=== PATIENT | female | born 1950 | race Caucasian/White ===

== ENCOUNTER 2018-07-08 21:06 | Inpatient (IN) | payer MEDICARE, OTHER ==
[2018-07-08 21:28] LABS: ADD MAN DIFF? NO
[2018-07-08 21:31] LABS: BASOPHILS % 0.5 % (0.0-2.0); EOSINOPHILS # 0.1 10^3/ul (0.0-0.5); EOSINOPHILS % 1.7 % (0.0-7.0); HEMATOCRIT 35.2 % (37.0-47.0); HEMOGLOBIN 12.2 g/dl (12.0-16.0); LYMPHOCYTES # 3.1 10^3/ul (0.8-2.9); LYMPHOCYTES % 40.7 % (15.0-51.0); MEAN CORPUSCULAR HEMOGLOBIN 30.1 pg (29.0-33.0); MEAN CORPUSCULAR HGB CONC 34.7 g/dl (32.0-37.0); MEAN CORPUSCULAR VOLUME 86.9 fl (82.0-101.0); MEAN PLATELET VOLUME 9.7 fl (7.4-10.4); MONOCYTE # 0.6 10^3/ul (0.3-0.9); MONOCYTES % 7.1 % (0.0-11.0); NEUTROPHIL # 3.8 10^3/ul (1.6-7.5); NEUTROPHILS % 49.6 % (39.0-77.0); PLATELET COUNT 196 10^3/UL (140-415); RED BLOOD COUNT 4.05 10^6/ul (4.20-5.40); RED CELL DISTRIBUTION WIDTH 12.5 % (11.5-14.5)
[2018-07-08 21:31] LABS: WHITE BLOOD COUNT 7.7 10^3/ul (4.8-10.8)
[2018-07-08 21:50] LABS: ANION GAP 12 (5-13); BLOOD UREA NITROGEN 19 mg/dl (7-20); CALCIUM 8.9 mg/dl (8.4-10.2); CARBON DIOXIDE 25 mmol/L (21-31); CHLORIDE 103 mmol/L (97-110); CREATININE 0.65 mg/dl (0.44-1.00); Estimated GFR > 60 mL/min (>60); GLUCOSE 203 mg/dl (70-220); POTASSIUM 3.1 mmol/L (3.5-5.1); SODIUM 140 mmol/L (135-144)
[2018-07-08 22:00] LABS: TROPONIN-I < 0.012 ng/ml (0.000-0.120)
[2018-07-08] MEDS: ONDANSETRON 4 MG INJ IV (22:12)
[2018-07-08] MEDS: morphine 2 MG INJ IV (22:12)
[2018-07-09] MEDS ORDERED: NACL 0.9% 3 ML SYG IV (02:30)
[2018-07-09] MEDS ORDERED: ONDANSETRON 4 MG INJ IV (02:30)
[2018-07-09] MEDS: clonAZEPAM 0.5 MG TAB PO ×3 (02:30→22:00)
[2018-07-09] MEDS ORDERED: ALBUTEROL/IPRATROPIUM (NEB) 3 ML AMP HHN (02:30)
[2018-07-09 03:45] LABS: ADD MAN DIFF? NO
[2018-07-09 04:01] LABS: WHITE BLOOD COUNT 6.8 10^3/ul (4.8-10.8)
[2018-07-09 04:01] LABS: BASOPHILS % 0.4 % (0.0-2.0); EOSINOPHILS # 0.1 10^3/ul (0.0-0.5); EOSINOPHILS % 1.5 % (0.0-7.0); HEMATOCRIT 32.6 % (37.0-47.0); HEMOGLOBIN 11.1 g/dl (12.0-16.0); LYMPHOCYTES # 2.6 10^3/ul (0.8-2.9); LYMPHOCYTES % 38.9 % (15.0-51.0); MEAN CORPUSCULAR HEMOGLOBIN 29.9 pg (29.0-33.0); MEAN CORPUSCULAR VOLUME 87.9 fl (82.0-101.0); MEAN PLATELET VOLUME 9.7 fl (7.4-10.4); MONOCYTE # 0.4 10^3/ul (0.3-0.9); MONOCYTES % 6.2 % (0.0-11.0); NEUTROPHIL # 3.6 10^3/ul (1.6-7.5); NEUTROPHILS % 52.3 % (39.0-77.0); PLATELET COUNT 174 10^3/UL (140-415); RED BLOOD COUNT 3.71 10^6/ul (4.20-5.40); RED CELL DISTRIBUTION WIDTH 12.7 % (11.5-14.5)
[2018-07-09 04:02] LABS: HEMOGLOBIN A1C 5.7 % (0-5.9)
[2018-07-09 04:15] LABS: ALANINE AMINOTRANSFERASE 35 IU/L (13-69); ALBUMIN 3.6 g/dl (3.3-4.9); ALKALINE PHOSPHATASE 91 IU/L (42-121); ANION GAP 8 (5-13); ASPARTATE AMINO TRANSFERASE 29 IU/L (15-46); BILIRUBIN,INDIRECT 0.7 mg/dl (0-1.1); BILIRUBIN,TOTAL 0.7 mg/dl (0.2-1.3); BLOOD UREA NITROGEN 17 mg/dl (7-20); CALCIUM 8.9 mg/dl (8.4-10.2); CARBON DIOXIDE 28 mmol/L (21-31); CHLORIDE 107 mmol/L (97-110); CHOL/HDL RATIO 5.1 RATIO; CHOLESTEROL 222 mg/dl (100-200); CREATINE KINASE 116 IU/L (23-200); CREATININE 0.59 mg/dl (0.44-1.00); Estimated GFR > 60 mL/min (>60); GLUCOSE 101 mg/dl (70-220); HDL CHOLESTEROL 43 mg/dl (35-98); LDL CHOLESTEROL,CALCULATED 159 mg/dl; MAGNESIUM 1.6 mg/dl (1.7-2.5); POTASSIUM 4.3 mmol/L (3.5-5.1); SODIUM 143 mmol/L (135-144); TRIGLYCERIDES 98 mg/dl (0-149)
[2018-07-09 04:25] LABS: CK INDEX 6.1; CK-MB 7.02 ng/ml (0.0-2.4)
[2018-07-09] MEDS ORDERED: HEPARIN 25000 UNITS/250 ML 250 ML IV (05:30)
[2018-07-09 06:00] LABS: ADD MAN DIFF? NO
[2018-07-09 06:08] LABS: WHITE BLOOD COUNT 6.1 10^3/ul (4.8-10.8)
[2018-07-09 06:08] LABS: BASOPHILS % 0.3 % (0.0-2.0); EOSINOPHILS # 0.1 10^3/ul (0.0-0.5); EOSINOPHILS % 1.7 % (0.0-7.0); HEMATOCRIT 32.7 % (37.0-47.0); HEMOGLOBIN 11.2 g/dl (12.0-16.0); LYMPHOCYTES # 2.4 10^3/ul (0.8-2.9); LYMPHOCYTES % 38.9 % (15.0-51.0); MEAN CORPUSCULAR HEMOGLOBIN 29.9 pg (29.0-33.0); MEAN CORPUSCULAR HGB CONC 34.3 g/dl (32.0-37.0); MEAN CORPUSCULAR VOLUME 87.4 fl (82.0-101.0); MEAN PLATELET VOLUME 9.4 fl (7.4-10.4); MONOCYTE # 0.4 10^3/ul (0.3-0.9); MONOCYTES % 6.6 % (0.0-11.0); NEUTROPHIL # 3.2 10^3/ul (1.6-7.5); NEUTROPHILS % 52.2 % (39.0-77.0); PLATELET COUNT 169 10^3/UL (140-415); RED BLOOD COUNT 3.74 10^6/ul (4.20-5.40); RED CELL DISTRIBUTION WIDTH 12.7 % (11.5-14.5)
[2018-07-09 06:32] LABS: INR 1.07; PT RATIO 1.1
[2018-07-09 06:33] LABS: PARTIAL THROMBOPLASTIN TIME 30.2 Sec (23.0-35.0)
[2018-07-09] MEDS: PANTOPRAZOLE (EC) 40 MG TAB PO (06:53)
[2018-07-09] MEDS: HEPARIN 25000 UNITS/D5W 250 ML IV ×3 (07:02→22:46)
[2018-07-09] MEDS: ASPIRIN (EC) 325 MG TAB PO (08:20)
[2018-07-09] MEDS: NIFEdipine (XL) 90 MG TAB PO (08:20)
[2018-07-09] MEDS ORDERED: ENOXAPARIN 40 MG/0.4 ML SYG SC (09:00)
[2018-07-09 10:32] LABS: CREATINE KINASE 138 IU/L (23-200)
[2018-07-09 10:42] LABS: CK INDEX 7.3
[2018-07-09] MEDS: ACETAMINOPHEN 325 MG TAB PO (11:56)
[2018-07-09 13:32] LABS: PARTIAL THROMBOPLASTIN TIME 36.2 Sec (23.0-35.0)
[2018-07-09] MEDS: HEPARIN 1000 UNITS/ML 10 ML INJ IV (15:09)
[2018-07-09] MEDS: MAGNESIUM SULFATE 2 GM/50 ML 50 ML IVPB (15:41)
[2018-07-09 18:51] LABS: CREATINE KINASE 109 IU/L (23-200)
[2018-07-09 19:00] LABS: PARTIAL THROMBOPLASTIN TIME 126.6 Sec (23.0-35.0)
[2018-07-09 19:02] LABS: CK INDEX 4.8; CK-MB 5.28 ng/ml (0.0-2.4)
[2018-07-09] MEDS: ATORVASTATIN 80 MG TAB PO (20:39)
[2018-07-09] MEDS: METOPROLOL 25 MG TAB PO (20:39)
[2018-07-09] MEDS ORDERED: ATORVASTATIN 20 MG TAB PO (21:00)
[2018-07-09 22:29] LABS: PARTIAL THROMBOPLASTIN TIME 82.5 Sec (23.0-35.0)
[2018-07-10] MEDS: clonAZEPAM 0.5 MG TAB PO ×3 (05:33→22:00)
[2018-07-10] MEDS: PANTOPRAZOLE (EC) 40 MG TAB PO (05:36)
[2018-07-10 06:29] LABS: ADD MAN DIFF? NO
[2018-07-10 06:35] LABS: WHITE BLOOD COUNT 5.3 10^3/ul (4.8-10.8)
[2018-07-10 06:35] LABS: BASOPHILS % 0.4 % (0.0-2.0); EOSINOPHILS # 0.1 10^3/ul (0.0-0.5); EOSINOPHILS % 1.9 % (0.0-7.0); HEMATOCRIT 34.3 % (37.0-47.0); HEMOGLOBIN 11.7 g/dl (12.0-16.0); LYMPHOCYTES # 2.1 10^3/ul (0.8-2.9); LYMPHOCYTES % 39.6 % (15.0-51.0); MEAN CORPUSCULAR HEMOGLOBIN 29.9 pg (29.0-33.0); MEAN CORPUSCULAR HGB CONC 34.1 g/dl (32.0-37.0); MEAN CORPUSCULAR VOLUME 87.7 fl (82.0-101.0); MEAN PLATELET VOLUME 9.8 fl (7.4-10.4); MONOCYTE # 0.3 10^3/ul (0.3-0.9); MONOCYTES % 5.7 % (0.0-11.0); NEUTROPHIL # 2.8 10^3/ul (1.6-7.5); PLATELET COUNT 179 10^3/UL (140-415); RED BLOOD COUNT 3.91 10^6/ul (4.20-5.40); RED CELL DISTRIBUTION WIDTH 12.8 % (11.5-14.5)
[2018-07-10 06:56] LABS: PARTIAL THROMBOPLASTIN TIME 35.7 Sec (23.0-35.0)
[2018-07-10 06:59] LABS: INR 0.97
[2018-07-10 07:01] LABS: ALANINE AMINOTRANSFERASE 31 IU/L (13-69); ALBUMIN 3.8 g/dl (3.3-4.9); ALBUMIN/GLOBULIN RATIO 1.46; ALKALINE PHOSPHATASE 95 IU/L (42-121); ANION GAP 9 (5-13); ASPARTATE AMINO TRANSFERASE 30 IU/L (15-46); BILIRUBIN,INDIRECT 0.5 mg/dl (0-1.1); BILIRUBIN,TOTAL 0.5 mg/dl (0.2-1.3); BLOOD UREA NITROGEN 14 mg/dl (7-20); CALCIUM 9.2 mg/dl (8.4-10.2); CARBON DIOXIDE 26 mmol/L (21-31); CHLORIDE 105 mmol/L (97-110); CREATININE 0.59 mg/dl (0.44-1.00); Estimated GFR > 60 mL/min (>60); GLUCOSE 126 mg/dl (70-220); SODIUM 140 mmol/L (135-144); TOTAL PROTEIN 6.4 g/dl (6.1-8.1)
[2018-07-10 07:02] LABS: CHOL/HDL RATIO 4.5 RATIO; HDL CHOLESTEROL 51 mg/dl (35-98); LDL CHOLESTEROL,CALCULATED 148 mg/dl; TRIGLYCERIDES 156 mg/dl (0-149)
[2018-07-10 07:02] LABS: CHOLESTEROL 230 mg/dl (100-200)
[2018-07-10] MEDS: HEPARIN 1000 UNITS/ML 10 ML INJ IV (07:32)
[2018-07-10 07:35] LABS: PHOSPHORUS 4.2 mg/dl (2.5-4.9)
[2018-07-10 07:35] LABS: MAGNESIUM 1.9 mg/dl (1.7-2.5)
[2018-07-10] MEDS: HEPARIN 25000 UNITS/D5W 250 ML IV (07:35)
[2018-07-10] MEDS: METOPROLOL 25 MG TAB PO ×3 (08:51→21:00)
[2018-07-10] MEDS: ASPIRIN (EC) 325 MG TAB PO (08:51)
[2018-07-10] MEDS: NIFEdipine (XL) 90 MG TAB PO (08:52)
[2018-07-10 14:29] LABS: PARTIAL THROMBOPLASTIN TIME 24.4 Sec (23.0-35.0)
[2018-07-10 20:07] LABS: TROPONIN-I 0.876 ng/ml (0.000-0.120)
[2018-07-10] MEDS: ATORVASTATIN 80 MG TAB PO (21:00)
[2018-07-11] MEDS: NITROGLYCERIN (SL) 0.4 MG TAB SL (01:28)
[2018-07-11] MEDS: clonAZEPAM 0.5 MG TAB PO ×2 (06:00→13:45)
[2018-07-11] MEDS: PANTOPRAZOLE (EC) 40 MG TAB PO (06:00)
[2018-07-11 06:55] LABS: ANION GAP 8 (5-13); BLOOD UREA NITROGEN 17 mg/dl (7-20); CALCIUM 9.3 mg/dl (8.4-10.2); CARBON DIOXIDE 28 mmol/L (21-31); CHLORIDE 103 mmol/L (97-110); CREATININE 0.57 mg/dl (0.44-1.00); Estimated GFR > 60 mL/min (>60); GLUCOSE 118 mg/dl (70-220); MAGNESIUM 1.7 mg/dl (1.7-2.5); POTASSIUM 4.3 mmol/L (3.5-5.1); SODIUM 139 mmol/L (135-144)
[2018-07-11] MEDS: NIFEdipine (XL) 90 MG TAB PO (08:29)
[2018-07-11] MEDS: ASPIRIN (EC) 325 MG TAB PO (08:29)
[2018-07-11] MEDS: METOPROLOL 25 MG TAB PO ×3 (08:30→21:31)
[2018-07-11] MEDS: MAGNESIUM OXIDE 400 MG TAB PO ×2 (16:15→21:31)
[2018-07-11] MEDS: ATORVASTATIN 80 MG TAB PO (21:00)
[2018-07-12] MEDS: MAGNESIUM OXIDE 400 MG TAB PO ×2 (10:06→20:51)
[2018-07-12] MEDS: ASPIRIN (EC) 325 MG TAB PO (10:06)
[2018-07-12] MEDS: NIFEdipine (XL) 90 MG TAB PO (10:06)
[2018-07-12] MEDS: METOPROLOL 25 MG TAB PO ×2 (10:07→20:51)
[2018-07-12] MEDS: ENOXAPARIN 40 MG/0.4 ML SYG SC (10:11)
[2018-07-12] MEDS: ATORVASTATIN 80 MG TAB PO (20:49)
[2018-07-13] MEDS: NIFEdipine (XL) 90 MG TAB PO (08:41)
[2018-07-13] MEDS: METOPROLOL 25 MG TAB PO ×2 (08:42→20:21)
[2018-07-13] MEDS: MAGNESIUM OXIDE 400 MG TAB PO ×2 (08:42→20:20)
[2018-07-13] MEDS: ASPIRIN (EC) 325 MG TAB PO (08:42)
[2018-07-13] MEDS: ENOXAPARIN 40 MG/0.4 ML SYG SC (08:58)
[2018-07-13] MEDS: ATORVASTATIN 80 MG TAB PO (21:00)
[2018-07-14 06:11] LABS: ADD MAN DIFF? NO
[2018-07-14 06:22] LABS: WHITE BLOOD COUNT 6.3 10^3/ul (4.8-10.8)
[2018-07-14 06:22] LABS: BASOPHILS % 0.5 % (0.0-2.0); EOSINOPHILS # 0.1 10^3/ul (0.0-0.5); EOSINOPHILS % 1.6 % (0.0-7.0); HEMATOCRIT 36.6 % (37.0-47.0); HEMOGLOBIN 12.1 g/dl (12.0-16.0); LYMPHOCYTES # 2.3 10^3/ul (0.8-2.9); MEAN CORPUSCULAR HEMOGLOBIN 29.6 pg (29.0-33.0); MEAN CORPUSCULAR HGB CONC 33.1 g/dl (32.0-37.0); MEAN CORPUSCULAR VOLUME 89.5 fl (82.0-101.0); MEAN PLATELET VOLUME 9.8 fl (7.4-10.4); MONOCYTE # 0.4 10^3/ul (0.3-0.9); MONOCYTES % 6.6 % (0.0-11.0); NEUTROPHIL # 3.4 10^3/ul (1.6-7.5); PLATELET COUNT 196 10^3/UL (140-415); RED BLOOD COUNT 4.09 10^6/ul (4.20-5.40); RED CELL DISTRIBUTION WIDTH 12.7 % (11.5-14.5)
[2018-07-14 06:40] LABS: INR 0.97
[2018-07-14 06:55] LABS: ANION GAP 8 (5-13); BLOOD UREA NITROGEN 14 mg/dl (7-20); CARBON DIOXIDE 27 mmol/L (21-31); CHLORIDE 108 mmol/L (97-110); CREATININE 0.58 mg/dl (0.44-1.00); Estimated GFR > 60 mL/min (>60); GLUCOSE 112 mg/dl (70-220); MAGNESIUM 1.9 mg/dl (1.7-2.5); POTASSIUM 4.4 mmol/L (3.5-5.1); SODIUM 143 mmol/L (135-144)
[2018-07-14] MEDS: MAGNESIUM OXIDE 400 MG TAB PO ×2 (08:38→20:34)
[2018-07-14] MEDS: ASPIRIN (EC) 325 MG TAB PO (08:38)
[2018-07-14] MEDS: NIFEdipine (XL) 90 MG TAB PO (08:38)
[2018-07-14] MEDS: METOPROLOL 25 MG TAB PO ×2 (08:38→20:34)
[2018-07-14] MEDS: ATORVASTATIN 80 MG TAB PO (21:00)
[2018-07-15 06:19] LABS: ADD MAN DIFF? NO
[2018-07-15 06:37] LABS: BASOPHILS % 0.2 % (0.0-2.0); EOSINOPHILS # 0.1 10^3/ul (0.0-0.5); EOSINOPHILS % 1.5 % (0.0-7.0); HEMATOCRIT 33.8 % (37.0-47.0); HEMOGLOBIN 11.6 g/dl (12.0-16.0); LYMPHOCYTES # 2.2 10^3/ul (0.8-2.9); LYMPHOCYTES % 40.5 % (15.0-51.0); MEAN CORPUSCULAR HGB CONC 34.3 g/dl (32.0-37.0); MEAN CORPUSCULAR VOLUME 87.3 fl (82.0-101.0); MEAN PLATELET VOLUME 9.9 fl (7.4-10.4); MONOCYTE # 0.4 10^3/ul (0.3-0.9); MONOCYTES % 6.6 % (0.0-11.0); NEUTROPHIL # 2.8 10^3/ul (1.6-7.5); PLATELET COUNT 185 10^3/UL (140-415); RED BLOOD COUNT 3.87 10^6/ul (4.20-5.40); RED CELL DISTRIBUTION WIDTH 12.7 % (11.5-14.5)
[2018-07-15 06:37] LABS: WHITE BLOOD COUNT 5.5 10^3/ul (4.8-10.8)
[2018-07-15 06:59] LABS: PHOSPHORUS 3.9 mg/dl (2.5-4.9)
[2018-07-15 06:59] LABS: MAGNESIUM 1.9 mg/dl (1.7-2.5)
[2018-07-15 07:01] LABS: ANION GAP 10 (5-13); BLOOD UREA NITROGEN 15 mg/dl (7-20); CALCIUM 8.8 mg/dl (8.4-10.2); CARBON DIOXIDE 27 mmol/L (21-31); CHLORIDE 106 mmol/L (97-110); CREATININE 0.51 mg/dl (0.44-1.00); Estimated GFR > 60 mL/min (>60); GLUCOSE 107 mg/dl (70-220); INR 0.97; POTASSIUM 4.3 mmol/L (3.5-5.1); SODIUM 143 mmol/L (135-144)
[2018-07-15 07:02] LABS: PARTIAL THROMBOPLASTIN TIME 30.7 Sec (23.0-35.0)
[2018-07-15 07:32] LABS: TROPONIN-I 0.058 ng/ml (0.000-0.120)
[2018-07-15] MEDS: MAGNESIUM OXIDE 400 MG TAB PO ×2 (08:25→21:28)
[2018-07-15] MEDS: METOPROLOL 25 MG TAB PO ×2 (08:26→21:30)
[2018-07-15] MEDS: ASPIRIN (EC) 325 MG TAB PO (08:26)
[2018-07-15] MEDS: NIFEdipine (XL) 90 MG TAB PO (08:26)
[2018-07-15] MEDS: [UNRECOGNIZED DRUG - OTHER] XX ×2 (09:30→17:19)
[2018-07-15] MEDS: DEXLANSOPRAZOLE XX (09:30)
[2018-07-15] MEDS: CHLORTHALIDONE XX ×2 (09:30→17:19)
[2018-07-15] MEDS: AZILSARTAN XX ×2 (09:30→17:19)
[2018-07-15] MEDS ORDERED: MIDAZOLAM 1 MG/ML 2 ML INJ (14:04)
[2018-07-15] MEDS ORDERED: FENTAnyl 50 MCG/ML VIAL (14:04)
[2018-07-15] MEDS ORDERED: NITROGLYCERIN (IC) 100 MCG/ML INJ (14:04)
[2018-07-15] MEDS ORDERED: VERAPAMIL 5 MG INJ (14:05)
[2018-07-15] MEDS ORDERED: IODIXANOL LOCM 100 ML BTL ×2 (14:05→15:33)
[2018-07-15] MEDS ORDERED: HEPARIN 1000 UNITS/ML 10 ML INJ (14:05)
[2018-07-15] MEDS ORDERED: LIDOCAINE 2% (MDV) 20 ML INJ (14:05)
[2018-07-15] MEDS ORDERED: TICAGRELOR 90 MG TABLET (14:58)
[2018-07-15] MEDS: PANTOPRAZOLE (EC) 40 MG TAB PO (15:00)
[2018-07-15] MEDS ORDERED: OXYCODONE/ACETAMINOPHEN (5/325) TAB PO (15:30)
[2018-07-15] MEDS ORDERED: ZOLPIDEM 5 MG TAB PO (15:30)
[2018-07-15] MEDS ORDERED: morphine 2 MG INJ IV (15:30)
[2018-07-15] MEDS ORDERED: ACETAMINOPHEN 325 MG TAB PO (15:30)
[2018-07-15] MEDS ORDERED: BIVALIRUDIN 250MG /NS 50 ML 50 ML IVPB (15:32)
[2018-07-15] MEDS ORDERED: IOHEXOL 350MG/ML 50 ML BTL (15:33)
[2018-07-15] MEDS: BIVALIRUDIN 250MG /NS 50 ML 50 ML IVPB (17:19)
[2018-07-15] MEDS: SOD CHLORIDE 0.9% 1,000 ML IV (17:19)
[2018-07-15] MEDS: DIAZEPAM 5 MG TAB PO (17:20)
[2018-07-15] MEDS: DIPHENHYDRAMINE 50 MG CAP PO (17:20)
[2018-07-15] MEDS: ATORVASTATIN 80 MG TAB PO (21:00)
[2018-07-15] MEDS: TICAGRELOR 90 MG TABLET PO (21:33)
[2018-07-16] MEDS: CHLORTHALIDONE XX ×2 (01:31→09:30)
[2018-07-16] MEDS: AZILSARTAN XX ×2 (01:31→09:30)
[2018-07-16] MEDS: [UNRECOGNIZED DRUG - OTHER] XX ×2 (01:31→09:30)
[2018-07-16] MEDS: PANTOPRAZOLE (EC) 40 MG TAB PO (05:40)
[2018-07-16 06:41] LABS: ADD MAN DIFF? NO
[2018-07-16 06:55] LABS: WHITE BLOOD COUNT 7.2 10^3/ul (4.8-10.8)
[2018-07-16 06:55] LABS: BASOPHILS % 0.3 % (0.0-2.0); EOSINOPHILS # 0.1 10^3/ul (0.0-0.5); EOSINOPHILS % 0.7 % (0.0-7.0); HEMATOCRIT 35.5 % (37.0-47.0); HEMOGLOBIN 12.2 g/dl (12.0-16.0); LYMPHOCYTES # 1.7 10^3/ul (0.8-2.9); LYMPHOCYTES % 24.2 % (15.0-51.0); MEAN CORPUSCULAR HEMOGLOBIN 29.8 pg (29.0-33.0); MEAN CORPUSCULAR HGB CONC 34.4 g/dl (32.0-37.0); MEAN CORPUSCULAR VOLUME 86.6 fl (82.0-101.0); MEAN PLATELET VOLUME 9.6 fl (7.4-10.4); MONOCYTE # 0.5 10^3/ul (0.3-0.9); MONOCYTES % 6.6 % (0.0-11.0); NEUTROPHIL # 4.9 10^3/ul (1.6-7.5); NEUTROPHILS % 67.9 % (39.0-77.0); PLATELET COUNT 190 10^3/UL (140-415); RED CELL DISTRIBUTION WIDTH 12.7 % (11.5-14.5)
[2018-07-16 07:14] LABS: ANION GAP 11 (5-13); BLOOD UREA NITROGEN 16 mg/dl (7-20); CALCIUM 9.5 mg/dl (8.4-10.2); CARBON DIOXIDE 27 mmol/L (21-31); CHLORIDE 104 mmol/L (97-110); CREATINE KINASE 33 IU/L (23-200); Estimated GFR > 60 mL/min (>60); GLUCOSE 108 mg/dl (70-220); SODIUM 142 mmol/L (135-144)
[2018-07-16 07:16] LABS: CK INDEX 1.8; CK-MB 0.58 ng/ml (0.0-2.4)
[2018-07-16 07:22] LABS: TROPONIN-I 0.166 ng/ml (0.000-0.120)
[2018-07-16 07:37] LABS: MAGNESIUM 1.9 mg/dl (1.7-2.5)
[2018-07-16 07:37] LABS: PHOSPHORUS 4.4 mg/dl (2.5-4.9)
[2018-07-16] MEDS: MAGNESIUM OXIDE 400 MG TAB PO (09:44)
[2018-07-16] MEDS: ASPIRIN (EC) 81 MG TAB PO (09:44)
[2018-07-16] MEDS: NIFEdipine (XL) 90 MG TAB PO (09:45)
[2018-07-16] MEDS: METOPROLOL 25 MG TAB PO (09:46)
[2018-07-16] MEDS: TICAGRELOR 90 MG TABLET PO ×3 (09:52→15:52)
[2018-07-16] MEDS: ENOXAPARIN 40 MG/0.4 ML SYG SC (09:58)
== END 2018-07-16 14:39 | disposition home or self-care (01) | DRG 247 ==
LOC: TEL 07-15 15:52 → E/R 21:06 → TEL 22:46
PROC: 027034Z Dilation of Coronary Artery, One Artery with Drug-eluting Intraluminal Device, Percutaneous Approach (ICD-10-PCS; principal; 2018-07-15 13:30)
PROC: B211YZZ Fluoroscopy of Multiple Coronary Arteries using Other Contrast (ICD-10-PCS; 2018-07-15 13:30)
DX: I21.4 Non-ST elevation (NSTEMI) myocardial infarction (principal); I10 Essential (primary) hypertension; E78.5 Hyperlipidemia, unspecified; K21.9 Gastro-esophageal reflux disease without esophagitis; F41.9 Anxiety disorder, unspecified; D64.9 Anemia, unspecified; E66.9 Obesity, unspecified; Z68.34 Body mass index [BMI] 34.0-34.9, adult; I25.10 Atherosclerotic heart disease of native coronary artery without angina pectoris; R73.03 Prediabetes
CPT/HCPCS: 36415; 71045; 80048; 80053; 80061; 82550; 82553; 83036; 83735; 84100; 84443; 84484; 85025; 85610; 85730; 93005; 93306; 93458; 96374; 96375; 99285-25; G0378

== ENCOUNTER 2019-01-14 09:10 | Day surgery (SDC) | payer MEDICARE, OTHER ==
[~2019-01-14 09:10] MED LIST: SOD CHLORIDE 0.45% 1,000 ML IV
[2019-01-14 09:44] LABS: ADD MAN DIFF? NO
[2019-01-14 09:47] LABS: BASOPHILS % 0.4 % (0.0-2.0); EOSINOPHILS # 0.1 10^3/ul (0.0-0.5); EOSINOPHILS % 1.4 % (0.0-7.0); HEMATOCRIT 36.2 % (37.0-47.0); LYMPHOCYTES % 36.1 % (15.0-51.0); MEAN CORPUSCULAR HEMOGLOBIN 30.2 pg (29.0-33.0); MEAN CORPUSCULAR HGB CONC 33.1 g/dl (32.0-37.0); MEAN PLATELET VOLUME 10.1 fl (7.4-10.4); MONOCYTE # 0.4 10^3/ul (0.3-0.9); MONOCYTES % 6.8 % (0.0-11.0); NEUTROPHIL # 3.1 10^3/ul (1.6-7.5); NEUTROPHILS % 55.3 % (39.0-77.0); PLATELET COUNT 176 10^3/UL (140-415); RED BLOOD COUNT 3.98 10^6/ul (4.20-5.40); RED CELL DISTRIBUTION WIDTH 13.1 % (11.5-14.5)
[2019-01-14 09:47] LABS: WHITE BLOOD COUNT 5.6 10^3/ul (4.8-10.8)
[2019-01-14 10:09] LABS: ANION GAP 12 (5-13); CARBON DIOXIDE 25 mmol/L (21-31); CHLORIDE 108 mmol/L (97-110); CREATININE 0.76 mg/dl (0.44-1.00); Estimated GFR > 60 mL/min (>60); GLUCOSE 121 mg/dl (70-220)
[2019-01-14 10:10] LABS: INR 0.99; PROTIME 13.2 Sec (11.9-14.9)
[2019-01-14 10:11] LABS: PARTIAL THROMBOPLASTIN TIME 30.3 Sec (23.0-35.0)
[2019-01-14 10:13] LABS: BLOOD UREA NITROGEN 17 mg/dl (7-20); CALCIUM 9.4 mg/dl (8.4-10.2); POTASSIUM 4.5 mmol/L (3.5-5.1); SODIUM 145 mmol/L (135-144)
[2019-01-14] MEDS ORDERED: PHENYLephrine (100 MCG/ML) 10ML SYG (10:46)
[2019-01-14] MEDS ORDERED: MIDAZOLAM 1 MG/ML 2 ML INJ (10:47)
[2019-01-14] MEDS ORDERED: PROPOFOL 40 ML (10:47)
[2019-01-14] MEDS ORDERED: EPHEDrine 25 MG/5 ML SYG IV (11:00)
[2019-01-14] MEDS ORDERED: ONDANSETRON 4 MG INJ IV (11:00)
[2019-01-14] MEDS ORDERED: HYDROmorphONE 1 MG/5 ML IV SYRINGE IV (11:00)
[2019-01-14] MEDS ORDERED: FENTAnyl 50 MCG/ML VIAL IV (11:00)
[2019-01-14] MEDS ORDERED: LABETALOL HCL 20MG INJ IV (11:00)
[2019-01-14] MEDS ORDERED: hydrALAzine 20 MG INJ IV (11:00)
== END 2019-01-14 14:40 | disposition home or self-care (01) ==
LOC: CCL 09:10 → SDS 09:10 → CCL 14:40
DX: I34.0 Nonrheumatic mitral (valve) insufficiency (principal)
CPT/HCPCS: 71045; 80048; 85025; 85610; 85730; 93005; 93312; 93320; 93325